=== PATIENT | male | born 1990 | race Hispanic/Latino ===

== ENCOUNTER 2017-06-21 13:33 | Emergency (ER) | payer BC ==
[2017-06-21 13:47] VITALS: BP 129/74; PULSE 99; RESP 16; O2SAT 97
[2017-06-21] MEDS ORDERED: Sodium Chloride 0.9% 1,000 ML IV STA (13:51)
--- NOTE | 2017-06-21 14:20 | ED PDOC ---
HPI: Fever Fever Onset Was: 06/19/17 The Fever Was Measured: Oral What Antipyretic Given Prior To Arrival: Acetaminophen, Ibuprofen Recent Sick Contacts: No Have you had recent travel within the past 21 days to any of the following countries: [place], [place], [place] or [place]?: No Does Patient Have Hx Of Febrile Seizures: No Did The Patient Have A Seizure Today: No Symptoms Associated With Fever: None Additional Comments: 27yo M in ED with fever x 2d after. lipoma on post. neck removed 4d ago. no pain, body aches, URI or GI symptoms, no sytmptoms no rash no GARCIA Past Medical History Reviewed: Historical Data, Nursing Documentation, Vital Signs Vital Signs: Last Vital Signs Temp 100.8 F H 06/21/17 14:57 Pulse 99 H 06/21/17 13:42 Resp 16 06/21/17 13:42 BP 129/74 06/21/17 13:42 Pulse Ox 97 06/21/17 14:24 - Medical History PMH: No Chronic Diseases - Family History Family History: States: No Known Family Hx - Allergies Allergies/Adverse Reactions: Allergies Allergy/AdvReac Type Severity Reaction Status Date / Time No Known Allergies Allergy Verified 06/21/17 13:49 Review of Systems ROS Statement: Except As Marked, All Systems Reviewed And Found Negative Constitutional: Positive for: Fever. Negative for: Chills, Sweats, Weakness, Malaise ENT: Negative for: Ear Pain, Ear Discharge, Nose Pain, Nose Discharge, Nose Congestion, Mouth Pain, Mouth Swelling, Throat Pain, Throat Swelling Cardiovascular: Negative for: Chest Pain, Palpitations Respiratory: Negative for: Cough, Shortness of Breath Gastrointestinal: Negative for: Nausea, Vomiting, Abdominal Pain Genitourinary Male: Negative for: Dysuria Skin: Negative for: Rash Physical Exam - Reviewed Nursing Documentation Reviewed: Yes Vital Signs Reviewed: Yes - Physical Exam Appears: Positive for: Well, Non-toxic, No Acute Distress Head Exam: Positive for: ATRAUMATIC, NORMAL INSPECTION, NORMOCEPHALIC Skin: Positive for: Normal Color, Warm, DRY Eye Exam: Positive for: Normal appearance, EOMI, PERRL ENT: Positive for: Normal ENT Inspection Neck: Positive for: Normal, Painless ROM (post. neck surgical site noted-well healing , mild warmth very mild ertyhema nontender no drainage) Cardiovascular/Chest: Positive for: Regular Rate, Rhythm Respiratory: Positive for: CNT, Normal Breath Sounds Gastrointestinal/Abdominal: Positive for: Normal Exam, Bowel Sounds, Soft Back: Positive for: Normal Inspection Extremity: Positive for: Normal ROM Neurologic/Psych: Positive for: Alert, Oriented - Laboratory Results Result Diagrams: 06/21/17 14:30 06/21/17 14:30 - ECG O2 Sat by Pulse Oximetry: 97 - Progress ED Course And Treament: Orders Category Date Time Status COMP METABOLIC PANEL Stat Chem 06/21/17 13:51 Uncollected LACT ACID, PLASMA Stat Chem 06/21/17 13:51 Uncollected CHEST TWO VIEWS (PA/LAT) [RAD] Stat Exams 06/21/17 14:11 Ordered CBC (WITH DIFFERENTIAL) Stat VALENTE 06/21/17 13:51 Uncollected Acetaminophen [Tylenol 325mg tab] Med 06/21/17 13:51 Discontinued 650 mg PO STAT STA Sodium Chloride 0.9% 1,000 ml Med 06/21/17 13:51 Active IV 1,000 mls/hr BLOOD CULTURE Stat Micro 06/21/17 13:51 Uncollected URINALYSIS Stat URINALYSIS 06/21/17 14:11 Uncollected Medical Decision Making Medical Decision Making: ct scna: IMPRESSION: No evidence of renal calculus or hydronephrosis. No evidence of bladder wall thickening. No evidence of colonic wall thickening or bowel obstruction. Nonspecific scattered small areas of induration and small lymph nodes within the retroperitoneum. Additional smaller scattered nodes within the mesenteric regions. This may suggest an element of adenitis but will require further clinical follow-up. No focal fluid collection to suggest abscess. No evidence of gallbladder wall thickening. Unremarkable pancreas. Vital Signs - 24 hr 06/21/17 06/21/17 06/21/17 13:42 14:24 14:57 Temperature 101.1 F H 100.8 F H Pulse Rate 99 H Respiratory 16 Rate Blood Pressure 129/74 O2 Sat by Pulse 97 97 Oximetry PT well appearing, improved VS and without any physical complaints. PT with increased without elevated WBC however neutrophils are increased and CT shows adenitis. PT advised that symptom may in fact be viral, but to monitor with pmd tomorrow PT given copies of labs and CT report. advised to return toER if worsened. Disposition - Clinical Impression Clinical Impression: Adenitis - Patient ED Disposition Is Patient to be Admitted: No Counseled Patient/Family Regarding: Studies Performed, Diagnosis, Need For Followup - Disposition Disposition: Routine/Home Disposition Time: 17:26 Condition: IMPROVED Instructions: Adenitis (ED), Mesenteric Adenitis (ED) Forms: [employer] ([place])
[2017-06-21 14:42] LABS: BASO % 0.3 % (0.0-2.0); EOS % 0.1 % (0.0-4.0); HEMATOCRIT 37.2 % (35.0-51.0); LYMPH # 1.1 K/uL (1.0-4.3); LYMPH % 11.1 % (20.0-40.0); MEAN CELL VOLUME 85.9 fl (80.0-94.0); MEAN CORPUSCULAR HEMOGLOBIN 29.1 pg (27.0-31.0); MEAN CORPUSCULAR HGB CONC 33.8 g/dL (33.0-37.0); MEAN PLATELET VOLUME 9.1 fl (7.2-11.7); MONO # 0.8 K/uL (0.0-0.8); MONO % 8.3 % (0.0-10.0); NEUT # 8.1 K/uL (1.8-7.0); NEUT % 80.2 % (50.0-75.0); RED CELL DISTRIBUTION WIDTH 12.5 % (11.5-14.5); WHITE BLOOD COUNT 10.1 K/uL (4.8-10.8)
[2017-06-21 14:59] VITALS: TEMP 100.8
[2017-06-21 15:02] LABS: RBC URINE 3 /hpf (0-3); URINE BACTERIA RARE (<OCC); URINE BILIRUBIN NEGATIVE (NEGATIVE); URINE BLOOD SMALL (NEGATIVE); URINE COLOR YELLOW (YELLOW); URINE GLUCOSE (UA) NEG (Normal); URINE KETONE TRACE mg/dL (NEGATIVE); URINE LEUKOCYTE ESTERASE NEG Leu/uL (Negative); URINE PROTEIN NEGATIVE (NEGATIVE); URINE URIC ACID CRYSTALS OCC /hpf (<OCC); URINE UROBILINOGEN 0.2-1.0 mg/dL (0.2-1.0); WBC URINE < 1 /hpf (0-5)
[2017-06-21 15:06] LABS: ALB/GLOB RATIO 1.4 (1.0-2.1); ALKALINE PHOSPHATASE 99 U/L (38-126); ALT/SGPT 56 U/L (21-72); AST/SGOT 34 U/L (17-59); BILIRUBIN,TOTAL 0.9 mg/dl (0.2-1.3); BLOOD UREA NITROGEN 11 mg/dl (9-20); CALCIUM 9.2 mg/dL (8.4-10.2); CARBON DIOXIDE 27 mmol/L (22-30); CHLORIDE 98 mmol/L (98-107); GFR AFRICAN-AMERICAN > 60; GLUCOSE,RANDOM 92 mg/dL (75-110); POTASSIUM 4.2 MMOL/L (3.6-5.0); SODIUM 137 mmol/l (132-148); TOTAL PROTEIN 7.7 G/DL (6.3-8.2)
--- NOTE | 2017-06-21 15:23 | RAD ---
HISTORY: cough COMPARISON: No prior. TECHNIQUE: Chest PA and lateral FINDINGS: LUNGS: No active pulmonary disease. PLEURA: No significant pleural effusion identified. No pneumothorax apparent. CARDIOVASCULAR: Normal. OSSEOUS STRUCTURES: No significant abnormalities. VISUALIZED UPPER ABDOMEN: Normal. OTHER FINDINGS: None. IMPRESSION: No active disease.
--- NOTE | 2017-06-21 17:24 | CT ---
PROCEDURE: CT Abdomen and Pelvis without intravenous contrast HISTORY: hematuira, ketones , fever COMPARISON: None. TECHNIQUE: Technique. Contrast Dose: No contrast was administered. Radiation dose: Total exam DLP = 910 mGy-cm. This CT exam was performed using one or more of the following dose reduction techniques: Automated exposure control, adjustment of the mA and/or kV according to patient size, and/or use of iterative reconstruction technique. FINDINGS: LOWER THORAX: Lung bases are unremarkable without evidence of infiltrate or effusion. Distal esophagus is within normal limits. No pericardial effusion is seen. LIVER: Noncontrast images of the liver show no evidence of focal mass or intrahepatic ductal dilatation. GALLBLADDER AND BILE DUCTS: Unremarkable. PANCREAS: Unremarkable. No gross lesion or ductal dilatation. SPLEEN: Unremarkable. ADRENALS: Unremarkable. No mass. KIDNEYS AND URETERS: Kidneys show no evidence of perinephric change, hydronephrosis, or renal calculus. No appreciable ureteral calculus is identified. VASCULATURE: Unremarkable. No aortic aneurysm. BOWEL: Unremarkable. No obstruction. No gross mural thickening. Visualized stomach is unremarkable as well as the duodenum. No small bowel dilatation or small bowel obstruction is noted. No fold thickening within the small bowel is seen. APPENDIX: Unremarkable. Normal appendix. PERITONEUM: No ascites is seen. No free intraperitoneal air is identified. LYMPH NODES: There is nonspecific mild diffuse small scattered retroperitoneal lymph nodes and some mild induration within the retroperitoneum. There may also be a few minimal scattered mesenteric lymph nodes. This is a nonspecific appearance which may suggest some elements of mesenteric adenitis although other etiologies not excluded. BLADDER: Visualized bladder is unremarkable. REPRODUCTIVE: Unremarkable. BONES: Bony structures are unremarkable. Minor bulging is seen in the lower lumbar spine region. OTHER FINDINGS: None. IMPRESSION: No evidence of renal calculus or hydronephrosis. No evidence of bladder wall thickening. No evidence of colonic wall thickening or bowel obstruction. Nonspecific scattered small areas of induration and small lymph nodes within the retroperitoneum. Additional smaller scattered nodes within the mesenteric regions. This may suggest an element of adenitis but will require further clinical follow-up. No focal fluid collection to suggest abscess. No evidence of gallbladder wall thickening. Unremarkable pancreas.
== END 2017-06-21 17:32 | disposition home or self-care (01) ==
LOC: H.ER 13:33
DX: I88.9 Nonspecific lymphadenitis, unspecified (principal)
CPT/HCPCS: 71020; 74176; 80053; 81003; 83605; 85025; 87040; 99283; J7040